=== PATIENT | female | born 1975 | race American Indian/Alaskan Native ===

== ENCOUNTER 2020-04-08 22:35 | Inpatient (IN) | payer OTHER ==
[2020-04-08] MEDS ORDERED: niCARdipine DRIP 40 MG/200 ML BAG IV ONE (23:07)
--- NOTE | 2020-04-08 23:12 | Cat Scan Report ---
CT head/brain wo con INDICATION: neuro deficits <6hrs or sx present upon awakening. TECHNIQUE: Routine CT head without contrast. All CT scans at this location are performed using CT dos e reduction for ALARA by means of automated exposure control. COMPARISON: None. FINDINGS: BRAIN / INTRACRANIAL CONTENTS: No acute hemorrhage, mass effect, midline shift, or hydrocephalus. No appreciable acute large territorial or lacunar infarct. No chronic infarct or focal atrophy. Normal b rain volume and ventricular/sulcal size for age. ORBITS: No significant abnormality of visualized orbits. SINUSES / MASTOIDS: No significant abnormality of visualized sinuses and mastoid air cells. ADDITIONAL FINDINGS: None. IMPRESSION: 1. No acute intracranial abnormality. CODE STROKE: Time of Communication (SOUND RECORDIST/CDT): 10:06 PM Licensed Practitioner Receiving Report: [place] Signer Name: Cas Evans MD Signed: 04/08/2020 11:07 PM Workstation Name: [id number]
[2020-04-08 23:45] LABS: BUN/Creatinine Ratio 16; Blood Urea Nitrogen 14 mg/dL (7-17); Hemolysis Index 6
[2020-04-08 23:56] LABS: Basophils % (Auto) 0.5 % (0.0-1.8); Eosinophils % (Auto) 0.1 % (0.0-4.3); Hematocrit 42.1 % (30.3-42.9); Hemoglobin 14.3 gm/dl (10.1-14.3); Lymphocytes # (Auto) 1.4 K/mm3 (1.2-5.4); Lymphocytes % (Auto) 20.6 % (13.4-35.0); Mean Corpuscular HGB Conc 34 % (30-34); Mean Corpuscular Volume 74 fl (79-97); Monocytes # (Auto) 0.3 K/mm3 (0.0-0.8); Platelet Count 206 K/mm3 (140-440); Red Blood Count 5.72 M/mm3 (3.65-5.03); Red Cell Distribution Width 17.8 % (13.2-15.2)
[2020-04-09 00:05] LABS: INR 1.04 (0.87-1.13)
[2020-04-09 00:06] LABS: Partial Thromboplastin Time 28.7 Sec. (24.2-36.6)
--- NOTE | 2020-04-09 00:13 | Cat Scan Report ---
CTA NECK WITH CONTRAST 04/08/2020 INDICATION / CLINICAL INFORMATION: stroke sx. COMPARISON: None. TECHNIQUE: Routine CTA of the neck is performed. 3-D/MIP reformats were postprocessed. Percentage st enosis is determined by direct quantitative measurements of diseased internal carotid artery diameter compared with normal distal internal carotid artery reference segments or by criteria similar to THANH CET where applicable. All CT scans at this location are performed using CT dose reduction for ALARA b y means of automated exposure control. CONTRAST: 100 ml of Isovue 370 FINDINGS: Carotid bifurcations: No evidence of carotid bifurcation stenosis. Carotid arteries: No significant abnormality. Cervical vertebral arteries: No significant abnormality. Aortic arch: No significant abnormality. None. IMPRESSION: No significant abnormality. Signer Name: Vic Aldana MD Signed: 04/09/2020 12:08 AM Workstation Name: [id number]
--- NOTE | 2020-04-09 00:15 | Cat Scan Report ---
CT ANGIOGRAM 04/08/2020 HISTORY: Stroke FINDINGS: Contrast-enhanced CT angiographic images of the intracranial circulation were obtained. In addition to the axial images, sagittal and coronal reformatted images were obtained. In addition, 3 p faye MIP reconstructions were produced. There is normal vascular contours associated with arterial vessels at the level of skull base and cir ayna of [place]. There is no evidence of vessel occlusion or significant stenosis. There is no evidence of vascular anomaly or aneurysm. IMPRESSION: No significant abnormality.. All CT scans at this location are performed using dose reduction to ALARA by means of automated expos ure control. Signer Name: Vic Aldana MD Signed: 04/09/2020 12:11 AM Workstation Name: [id number]
--- NOTE | 2020-04-09 00:32 | Emergency Department Report ---
ED General Adult HPI - General Chief complaint: Neuro Symptoms/Deficit Stated complaint: HIGH BLOOD PRESSURE Time Seen by Provider: 04/08/20 22:47 Source: patient Mode of arrival: Ambulatory Limitations: No Limitations - History of Present Illness Initial comments: Patient presents to the emergency department the chief complaint of right arm weakness and left facial droop. Patient states she woke up this morning at approximately 11 AM and noticed that she cannot move her right arm. Patient also states when she tried to smile the left side of her face was drooping. Patient has a history of hypertension and uses holistic treatments for her hypertension. On arrival to the emergency department patient's blood pressure was 254/147. Patient denies chest pain, shortness breath, or headache. -: Sudden Location: upper extremity Severity scale (0 -10): 0 Consistency: constant Improves with: none Worsens with: none Associated Symptoms: denies other symptoms Treatments Prior to Arrival: none - Related Data Allergies Allergy/AdvReac Type Severity Reaction Status Date / Time No Known Allergies Allergy Unverified 04/08/20 22:37 ED Review of Systems ROS: Stated complaint: HIGH BLOOD PRESSURE Other details as noted in HPI Comment: All other systems reviewed and negative Constitutional: denies: chills, fever Eyes: denies: eye pain, eye discharge, vision change ENT: denies: ear pain, throat pain Respiratory: denies: cough, shortness of breath, wheezing Cardiovascular: denies: chest pain, palpitations Endocrine: no symptoms reported Gastrointestinal: denies: abdominal pain, nausea, diarrhea Genitourinary: denies: urgency, dysuria, discharge Musculoskeletal: denies: back pain, joint swelling, arthralgia Skin: denies: rash, lesions Neurological: denies: headache, weakness, paresthesias Psychiatric: denies: anxiety, depression Hematological/Lymphatic: denies: easy bleeding, easy bruising ED Past Medical Hx - Past Medical History Hx Hypertension: Yes - Surgical History Past Surgical History?: No - Social History Smoking Status: Never Smoker Substance Use Type: Alcohol ED Physical Exam - General Limitations: No Limitations General appearance: alert, in no apparent distress - Head Head exam: Present: atraumatic, normocephalic - Eye Eye exam: Present: normal appearance - ENT ENT exam: Present: mucous membranes moist - Neck Neck exam: Present: normal inspection - Respiratory Respiratory exam: Present: normal lung sounds bilaterally. Absent: respiratory distress - Cardiovascular Cardiovascular Exam: Present: regular rate, normal rhythm. Absent: systolic murmur, diastolic murmur, rubs, gallop - GI/Abdominal GI/Abdominal exam: Present: soft, normal bowel sounds - Extremities Exam Extremities exam: Present: other (Patient has 2 out of 5 strength of the right upper extremity) - Back Exam Back exam: Present: normal inspection - Neurological Exam Neurological exam: Present: alert, oriented X3, CN II-XII intact. Absent: motor sensory deficit - Psychiatric Psychiatric exam: Present: normal affect, normal mood - Skin Skin exam: Present: warm, dry, intact, normal color. Absent: rash ED Course Vital Signs 04/08/20 04/08/20 04/09/20 22:43 23:08 00:18 Pulse Rate 84 92 H Respiratory 20 19 20 Rate Blood Pressure 254/147 218/130 [Right] O2 Sat by Pulse 98 98 98 Oximetry ED Medical Decision Making - Lab Data Result diagrams: 04/08/20 23:09 04/08/20 23:09 Lab Results 04/08/20 04/08/20 04/08/20 Range/Units 23:09 23:09 23:09 WBC 6.7 (4.5-11.0) K/mm3 RBC 5.72 H (3.65-5.03) M/mm3 Hgb 14.3 (10.1-14.3) gm/dl Hct 42.1 (30.3-42.9) % MCV 74 L (79-97) fl MCH 25 L (28-32) pg MCHC 34 (30-34) % RDW 17.8 H (13.2-15.2) % Plt Count 206 (140-440) K/mm3 Lymph % (Auto) 20.6 (13.4-35.0) % [place] % (Auto) 5.0 (0.0-7.3) % Eos % (Auto) 0.1 (0.0-4.3) % Baso % (Auto) 0.5 (0.0-1.8) % Lymph # (Auto) 1.4 (1.2-5.4) K/mm3 [place] # (Auto) 0.3 (0.0-0.8) K/mm3 Eos # (Auto) 0.0 (0.0-0.4) K/mm3 Baso # (Auto) 0.0 (0.0-0.1) K/mm3 Seg Neutrophils % 73.8 H (40.0-70.0) % Seg Neutrophils # 5.0 (1.8-7.7) K/mm3 PT 13.7 (12.2-14.9) Sec. INR 1.04 (0.87-1.13) APTT 28.7 (24.2-36.6) Sec. Thrombin Time (15.1-19.6) Sec. Sodium 139 (137-145) mmol/L Potassium 3.3 L (3.6-5.0) mmol/L Chloride 101.3 (98-107) mmol/L Carbon Dioxide 22 (22-30) mmol/L Anion Gap 19 mmol/L BUN 14 (7-17) mg/dL Creatinine 0.9 (0.6-1.2) mg/dL Estimated GFR > 60 ml/min BUN/Creatinine Ratio 16 % Glucose 145 H (65-100) mg/dL Calcium 10.0 (8.4-10.2) mg/dL Troponin T < 0.010 (0.00-0.029) ng/mL 04/08/20 Range/Units 23:09 WBC (4.5-11.0) K/mm3 RBC (3.65-5.03) M/mm3 Hgb (10.1-14.3) gm/dl Hct (30.3-42.9) % MCV (79-97) fl MCH (28-32) pg MCHC (30-34) % RDW (13.2-15.2) % Plt Count (140-440) K/mm3 Lymph % (Auto) (13.4-35.0) % [place] % (Auto) (0.0-7.3) % Eos % (Auto) (0.0-4.3) % Baso % (Auto) (0.0-1.8) % Lymph # (Auto) (1.2-5.4) K/mm3 [place] # (Auto) (0.0-0.8) K/mm3 Eos # (Auto) (0.0-0.4) K/mm3 Baso # (Auto) (0.0-0.1) K/mm3 Seg Neutrophils % (40.0-70.0) % Seg Neutrophils # (1.8-7.7) K/mm3 PT (12.2-14.9) Sec. INR (0.87-1.13) APTT (24.2-36.6) Sec. Thrombin Time 15.9 (15.1-19.6) Sec. Sodium (137-145) mmol/L Potassium (3.6-5.0) mmol/L Chloride (98-107) mmol/L Carbon Dioxide (22-30) mmol/L Anion Gap mmol/L BUN (7-17) mg/dL Creatinine (0.6-1.2) mg/dL Estimated GFR ml/min BUN/Creatinine Ratio % Glucose (65-100) mg/dL Calcium (8.4-10.2) mg/dL Troponin T (0.00-0.029) ng/mL - EKG Data -: EKG Interpreted by Me EKG shows normal: sinus rhythm Rate: normal - Radiology Data Radiology results: report reviewed - Medical Decision Making Tele-neurology consulted on patient TPA not indicated due to timeframe Timmy brock initiated Critical Care Time: Yes Critical care time in (mins) excluding proc time.: 35 Critical care attestation.: If time is entered above; I have spent that time in minutes in the direct care of this critically ill patient, excluding procedure time. ED Disposition Clinical Impression: Hypertensive emergency Disposition: DC-01 TO HOME OR SELFCARE Is pt being admited?: Yes Does the pt Need Aspirin: Yes Condition: Fair Instructions: Hypertension (ED) Referrals: PRIMARY CARE, [Primary Care Provider] - 3-5 Days
[2020-04-09] MEDS ORDERED: ASPIRIN 81 MG TAB CHEW PO ONE (00:53)
--- NOTE | 2020-04-09 01:08 | Emergency Department Report ---
ED Neuro Deficit HPI - General Chief Complaint: Neuro Symptoms/Deficit Stated Complaint: HIGH BLOOD PRESSURE Time Seen by Provider: 04/08/20 22:47 Source: patient Mode of arrival: Ambulatory Limitations: No Limitations - History of Present Illness Initial Comments: [facility] Date of Service: 04/08/2020 22:41:43 Impression: Rule Out Acute Ischemic Stroke Comments/Sign-Out: The patient has right arm and leg weakness. Possible hypertnsive stroke. Consider left bg stroke. No alteplase given outside of window. small vessel disease, would <BP below 220/110 Metrics: Last Known Well: 04/08/2020 11:00:00 [facility] Notification Time: 04/08/2020 22:41:07 Arrival Time: 04/08/2020 22:20:43 Stamp Time: 04/08/2020 22:41:43 Time First Login Attempt: 04/08/2020 22:44:52 Video Start Time: 04/08/2020 22:44:52 Symptoms: came through triage, high blood pressure. NIHSS Start Assessment Time: 04/08/2020 22:53:46 Patient is not a candidate for Alteplase/Activase. Patient was not deemed candidate for Alteplase/Activase thrombolytics because of Last Well Known Above 4.5 Hours. Video End Time: 04/08/2020 22:48:16 CT head showed no acute hemorrhage or acute core infarct. Clinical Presentation is Suggestive of Large Vessel Occlusive Disease, Recommendations are as Follows Reviewed, No Indication of Large Vessel Occlusive Thrombus, Patient is not an ARACELI Candidate. ED Physician notified of diagnostic impression and management plan on 04/08/2020 22:59:16 Our recommendations are outlined below. Recommendations: Activate Stroke Protocol Admission/Order Set Stroke/Telemetry Floor Neuro Checks Bedside Swallow Eval DVT Prophylaxis IV Fluids, Normal Saline Head of Bed 30 Degrees Euglycemia and Avoid Hyperthermia (PRN Acetaminophen) Antiplatelet Therapy Recommended Sign Out: Discussed with Emergency Department Provider History of Present Illness: Patient is a 44 year old Female. Patient was last normal, came in for high blood pressure. BP was 197/118, and reason for visit was high blood pressure. Examination: BP(218/130), Pulse(92), Blood Glucose(see note- 145) 1A: Level of Consciousness - Alert; keenly responsive + 0 1B: Ask Month and Age - Both Questions Right + 0 1C: Blink Eyes & Squeeze Hands - Performs Both Tasks + 0 2: Test Horizontal Extraocular Movements - Normal + 0 3: Test Visual [place]in - No Visual Loss + 0 4: Test Facial Palsy (Use Grimace if Obtunded) - Normal symmetry + 0 5A: Test Left Arm Motor Drift - No Drift for 10 Seconds + 0 5B: Test Right Arm Motor Drift - No Effort Against [place] + 3 6A: Test Left Leg Motor Drift - No Drift for 5 Seconds + 0 6B: Test Right Leg Motor Drift - No Effort Against [place] + 3 7: Test Limb Ataxia (FNF/Heel-Gomez) - No Ataxia + 0 8: Test Sensation - Normal; No sensory loss + 0 9: Test Language/Aphasia - Normal; No aphasia + 0 10: Test Dysarthria - Normal + 0 11: Test Extinction/Inattention - No abnormality + 0 NIHSS Score: 6 Patient/Family was informed the Neurology Consult would happen via TeleHealth consult by way of interactive audio and video telecommunications and consented to receiving care in this manner. Due to the immediate potential for life-threatening deterioration due to underlying acute neurologic illness, I spent 35 minutes providing critical care. This time includes time for face to face visit via telemedicine, review of medic al records, imaging studies and discussion of findings with providers, the patient and/or family. Dr Kentrell Romano [facility] Case [id number] - Related Data Allergies/Adverse Reactions: Allergies Allergy/AdvReac Type Severity Reaction Status Date / Time No Known Allergies Allergy Unverified 04/08/20 22:37 ED Review of Systems ROS: Stated complaint: HIGH BLOOD PRESSURE Other details as noted in HPI Constitutional: denies: chills, fever Eyes: denies: eye pain, eye discharge, vision change ENT: denies: ear pain, throat pain Respiratory: denies: cough, shortness of breath, wheezing Cardiovascular: denies: chest pain, palpitations Endocrine: no symptoms reported Gastrointestinal: denies: abdominal pain, nausea, diarrhea Genitourinary: denies: urgency, dysuria, discharge Musculoskeletal: denies: back pain, joint swelling, arthralgia Skin: denies: rash, lesions Neurological: denies: headache, weakness, paresthesias Psychiatric: denies: anxiety, depression Hematological/Lymphatic: denies: easy bleeding, easy bruising ED Past Medical Hx - Past Medical History Hx Hypertension: Yes - Surgical History Past Surgical History?: No - Social History Smoking Status: Never Smoker Substance Use Type: Alcohol ED Neuro Physical Exam - General Limitations: No Limitations General appearance: alert, in no apparent distress Suspected Stroke: Yes (see note) - NIHSS Assessment Interval: Baseline (see note) 1a. Level of Consciousness: alert/keenly responsive 1b. LOC Questions: answers both correctly 1c. LOC Commands: performs tasks correctly 2. Best Gaze: normal 3. Visual: no visual loss 4. Facial Palsy: normal symmetrical movement 5b. Motor Arm Right: no movement 5a. Motor Arm Left: no drift 6a. Motor Leg Left: no drift 6b. Motor Leg Right: no movement 7. Limb Ataxia: absent 8. Sensory: normal 9. Best Language: no aphasia 10. Dysarthria: normal 11. Extinction/Inattention: no abnormality Total Score: 8 Stroke Severity: Moderate Stroke - Psychiatric Psychiatric exam: Present: normal affect ED Course Vital Signs 04/08/20 04/08/20 04/09/20 22:43 23:08 00:18 Pulse Rate 84 92 H Respiratory 20 19 20 Rate Blood Pressure 254/147 218/130 [Right] O2 Sat by Pulse 98 98 98 Oximetry - Lab Data Result diagrams: 04/08/20 23:09 04/08/20 23:09 Lab Results 04/08/20 04/08/20 04/08/20 Range/Units 23:09 23:09 23:09 WBC 6.7 (4.5-11.0) K/mm3 RBC 5.72 H (3.65-5.03) M/mm3 Hgb 14.3 (10.1-14.3) gm/dl Hct 42.1 (30.3-42.9) % MCV 74 L (79-97) fl MCH 25 L (28-32) pg MCHC 34 (30-34) % RDW 17.8 H (13.2-15.2) % Plt Count 206 (140-440) K/mm3 Lymph % (Auto) 20.6 (13.4-35.0) % [place] % (Auto) 5.0 (0.0-7.3) % Eos % (Auto) 0.1 (0.0-4.3) % Baso % (Auto) 0.5 (0.0-1.8) % Lymph # (Auto) 1.4 (1.2-5.4) K/mm3 [place] # (Auto) 0.3 (0.0-0.8) K/mm3 Eos # (Auto) 0.0 (0.0-0.4) K/mm3 Baso # (Auto) 0.0 (0.0-0.1) K/mm3 Seg Neutrophils % 73.8 H (40.0-70.0) % Seg Neutrophils # 5.0 (1.8-7.7) K/mm3 PT 13.7 (12.2-14.9) Sec. INR 1.04 (0.87-1.13) APTT 28.7 (24.2-36.6) Sec. Thrombin Time (15.1-19.6) Sec. Sodium 139 (137-145) mmol/L Potassium 3.3 L (3.6-5.0) mmol/L Chloride 101.3 (98-107) mmol/L Carbon Dioxide 22 (22-30) mmol/L Anion Gap 19 mmol/L BUN 14 (7-17) mg/dL Creatinine 0.9 (0.6-1.2) mg/dL Estimated GFR > 60 ml/min BUN/Creatinine Ratio 16 % Glucose 145 H (65-100) mg/dL Calcium 10.0 (8.4-10.2) mg/dL Troponin T < 0.010 (0.00-0.029) ng/mL 04/08/20 Range/Units 23:09 WBC (4.5-11.0) K/mm3 RBC (3.65-5.03) M/mm3 Hgb (10.1-14.3) gm/dl Hct (30.3-42.9) % MCV (79-97) fl MCH (28-32) pg MCHC (30-34) % RDW (13.2-15.2) % Plt Count (140-440) K/mm3 Lymph % (Auto) (13.4-35.0) % [place] % (Auto) (0.0-7.3) % Eos % (Auto) (0.0-4.3) % Baso % (Auto) (0.0-1.8) % Lymph # (Auto) (1.2-5.4) K/mm3 [place] # (Auto) (0.0-0.8) K/mm3 Eos # (Auto) (0.0-0.4) K/mm3 Baso # (Auto) (0.0-0.1) K/mm3 Seg Neutrophils % (40.0-70.0) % Seg Neutrophils # (1.8-7.7) K/mm3 PT (12.2-14.9) Sec. INR (0.87-1.13) APTT (24.2-36.6) Sec. Thrombin Time 15.9 (15.1-19.6) Sec. Sodium (137-145) mmol/L Potassium (3.6-5.0) mmol/L Chloride (98-107) mmol/L Carbon Dioxide (22-30) mmol/L Anion Gap mmol/L BUN (7-17) mg/dL Creatinine (0.6-1.2) mg/dL Estimated GFR ml/min BUN/Creatinine Ratio % Glucose (65-100) mg/dL Calcium (8.4-10.2) mg/dL Troponin T (0.00-0.029) ng/mL Critical care attestation.: If time is entered above; I have spent that time in minutes in the direct care of this critically ill patient, excluding procedure time. ED Disposition Clinical Impression: Stroke Qualifiers: CVA mechanism: other Qualified Code(s): I63.89 - Other cerebral infarction Disposition: DC09 OP ADMIT IP TO THIS HOSP Is pt being admited?: Yes Does the pt Need Aspirin: Yes Condition: Fair Instructions: Hypertension (ED) Referrals: PRIMARY CARE, [Primary Care Provider] - 3-5 Days
--- NOTE | 2020-04-09 01:10 | Emergency Department Report ---
ED General Adult HPI - General Chief complaint: Neuro Symptoms/Deficit Stated complaint: HIGH BLOOD PRESSURE Time Seen by Provider: 04/08/20 22:47 - History of Present Illness Initial comments: This note is exclusively for the NIH scale please see the other note for further detail. - Related Data Allergies Allergy/AdvReac Type Severity Reaction Status Date / Time No Known Allergies Allergy Unverified 04/08/20 22:37 ED Review of Systems ROS: Stated complaint: HIGH BLOOD PRESSURE Other details as noted in HPI ED Past Medical Hx - Past Medical History Hx Hypertension: Yes - Surgical History Past Surgical History?: No - Social History Smoking Status: Never Smoker Substance Use Type: Alcohol ED Course Vital Signs 04/08/20 04/08/20 04/08/20 22:43 23:08 23:16 Pulse Rate 84 83 Respiratory 20 19 22 Rate Blood Pressure 254/147 Blood Pressure 254/147 [Right] O2 Sat by Pulse 98 98 98 Oximetry 04/09/20 04/09/20 04/09/20 00:16 00:18 00:30 Pulse Rate 93 H 92 H 101 H Respiratory 28 H 20 20 Rate Blood Pressure 254/147 218/130 Blood Pressure 218/130 [Right] O2 Sat by Pulse 98 98 97 Oximetry 04/09/20 04/09/20 00:45 01:00 Pulse Rate 104 H 102 H Respiratory 25 H 20 Rate Blood Pressure 254/147 194/108 Blood Pressure [Right] O2 Sat by Pulse 97 95 Oximetry ED Medical Decision Making - Lab Data Result diagrams: 04/08/20 23:09 04/08/20 23:09 Critical care attestation.: If time is entered above; I have spent that time in minutes in the direct care of this critically ill patient, excluding procedure time. ED Disposition Clinical Impression: Upper extremity weakness, Hypertensive emergency Disposition: DC-09 OP ADMIT IP TO THIS HOSP Is pt being admited?: Yes Condition: Fair Instructions: Hypertension (ED) Referrals: PRIMARY CARE, [Primary Care Provider] - 3-5 Days - Assessment Assessment Interval: Baseline - Level of Consciousness 1a. Level of Consciousness: alert/keenly responsive - LOC Questions 1b. LOC Questions: answers no questions correctly - LOC Command 1c. LOC Commands: performs tasks correctly - Best Gaze 2. Best Gaze: normal - Visual 3. Visual: no visual loss - Facial Palsy 4. Facial Palsy: normal symmetrical movement - Motor Arm 5a. Motor Arm Left: no drift 5b. Motor Arm Right: some gravity effort - Motor Leg 6a. Motor Leg Left: no drift 6b. Motor Leg Right: no drift - Limb Ataxia 7. Limb Ataxia: absent - Sensory 8. Sensory: normal - Best Language 9. Best Language: no aphasia - Dysarthria 10. Dysarthria: normal - Extinction and Inattention 11. Extinction/Inattention: no abnormality - Scoring Total Score: 4 Stroke Severity: Minor Stroke
[2020-04-09] MEDS ORDERED: METOCLOPRAMIDE 10 MG TAB PO PRN (03:08)
[2020-04-09] MEDS ORDERED: MAGNESIUM HYDROXIDE (MOM) ORAL LIQD UDC PO PRN ×2 (03:08)
[2020-04-09] MEDS ORDERED: MORPHINE 2 MG/1 ML INJ IV PRN ×2 (03:08)
[2020-04-09] MEDS ORDERED: ACETAMINOPHEN 325 MG TAB PO PRN (03:08)
[2020-04-09] MEDS ORDERED: PROMETHAZINE 25 MG RECT SUPP PR PRN (03:08)
[2020-04-09] MEDS ORDERED: ONDANSETRON 4 MG/2 ML INJ IV PRN ×2 (03:08)
--- NOTE | 2020-04-09 03:22 | History and Physical Report ---
History of Present Illness Date of examination: 04/09/20 Date of admission: 04/09/20 00:49 Chief complaint: Right sided weakness Left facial droop History of present illness: Patient is a 44-year-old female with known history of hypertension presented to the emergency room today with complaints of right-sided weakness and left-sided facial droop. She noticed that she was suddenly not able to raise her right upper extremity after waking up earlier this morning. She also had some numbness on her face. Patient uses holistic treatment for high blood pressure. Upon arrival in the emergency room blood pressure was 254/147. She was subsequently started on Cardene drip. She was evaluated by the teleneurologist and found not to be a TPA candidate. CT scan of the head and CT angiogram of the head and neck were unremarkable. Patient being admitted for evaluation of CVA. Past History Past Medical History: hypertension Past Surgical History: No surgical history Social history: no significant social history Family history: no significant family history Medications and Allergies Allergies Allergy/AdvReac Type Severity Reaction Status Date / Time No Known Allergies Allergy Verified 04/09/20 03:36 Active Meds: Active Medications Nicardipine/Sodium Chloride (Cardene Drip 40 Mg/200 Ml) 40 mg in 200 mls @ 25 mls/hr IV ONCE ONE; Protocol Stop: 04/09/20 07:06 Last Titration: 04/09/20 03:03 Dose: 2.75 mg/hr, 13.75 mls/hr Documented by: Review of Systems Constitutional: no fever, no chills Ears, nose, mouth and throat: no nasal congestion, no sore throat Cardiovascular: no chest pain, no palpitations Respiratory: no cough, no shortness of breath Gastrointestinal: no abdominal pain, no nausea, no vomiting, no diarrhea Genitourinary Female: no pelvic pain, no flank pain, no dysuria, no hematuria Musculoskeletal: no neck pain, no low back pain Integumentary: no rash, no pruritis Neurological: weakness (Right sided weakness), no headaches, no change in mentation Psychiatric: no anxiety, no depression Exam - Constitutional Vitals: Temp Pulse Resp BP Pulse Ox 91 H 22 192/105 95 04/09/20 03:01 04/09/20 03:01 04/09/20 03:01 04/09/20 03:01 General appearance: Present: no acute distress, well-nourished - EENT Eyes: Present: PERRL, EOM intact. Absent: scleral icterus ENT: hearing intact, clear oral mucosa, dentition normal - Neck Neck: Present: supple, normal ROM - Respiratory Respiratory effort: normal Respiratory: bilateral: CTA - Cardiovascular Rhythm: regular Heart Sounds: Present: S1 & S2. Absent: gallop, systolic murmur, diastolic murmur, rub - Extremities Extremities: no ischemia, pulses intact, pulses symmetrical, No edema, Full ROM Peripheral Pulses: within normal limits - Abdominal General gastrointestinal: Present: soft, non-tender, non-distended, normal bowel sounds. Absent: mass - Integumentary Integumentary: Present: clear, warm, dry - Musculoskeletal Musculoskeletal: right sided weakness - Psychiatric Psychiatric: appropriate mood/affect, intact judgment & insight, memory intact, cooperative - Neurologic Neurologic: CNII-XII intact, moves all extremities (Weakness on right upper and lower extremities.) HEART Score - HEART Score Troponin: Troponin T < 0.010 ng/mL (0.00-0.029) 04/08/20 23:09 Results - Labs CBC & Chem 7: 04/08/20 23:09 04/09/20 09:28 Labs: Abnormal lab results 04/08/20 04/08/20 Range/Units 23:09 23:09 RBC 5.72 H (3.65-5.03) M/mm3 MCV 74 L (79-97) fl MCH 25 L (28-32) pg RDW 17.8 H (13.2-15.2) % Seg Neutrophils % 73.8 H (40.0-70.0) % Potassium 3.3 L (3.6-5.0) mmol/L Glucose 145 H (65-100) mg/dL Assessment and Plan - Patient Problems (1) Upper extremity weakness Current Visit: Yes Status: Acute Plan to address problem: Possibly secondary to CVA. Patient started on daily aspirin and statin. We will schedule patient for carotid Doppler and MRI of the brain. We will request neurology evaluation and recommendation. Physical therapy and speech therapy evaluation. (2) Hypertensive emergency Current Visit: Yes Status: Acute Plan to address problem: Patient currently on Cardene drip. Will titrate according to protocol. Will monitor vital signs closely. (3) DVT prophylaxis Current Visit: Yes Status: Acute Plan to address problem: Patient placed on subcutaneous Lovenox. (4) Full code status Current Visit: Yes Status: Acute
[2020-04-09] MEDS ORDERED: carvediloL 3.125 MG TAB PO SCH (10:00)
[2020-04-09] MEDS ORDERED: amLODIPine 10 MG TAB PO SCH (10:00)
[2020-04-09] MEDS: ASPIRIN 325 MG TAB PO SCH (10:41)
[2020-04-09 10:53] LABS: BUN/Creatinine Ratio 19; Blood Urea Nitrogen 15 mg/dL (7-17); Calcium 9.5 mg/dL (8.4-10.2); Hemolysis Index 12
[2020-04-09] MEDS ORDERED: POTASSIUM CHLORIDE ER 20 MEQ TAB PO SCH (11:30)
[2020-04-09] MEDS ORDERED: carvediloL 3.125 MG TAB PO ONE (14:00)
--- NOTE | 2020-04-09 14:00 | Vascular Lab Report ---
Bilateral Carotid Doppler Ultrasound INDICATION : stroke TECHNIQUE: Grayscale and color Doppler imaging performed through the neck. COMPARISON: CT angiogram neck from 04/08/2020 FINDINGS: Right: There is no significant atherosclerotic disease. Peak systolic velocity in the CCA is 81 cm/ s. Peak systolic velocity in the proximal ICA is 109 cm/s with end-diastolic velocity of 29 cm/s. ICA to CCA ratio is less than 2. There is antegrade flow in the ECA and the vertebral artery. Left: There is no significant atherosclerotic disease. Peak systolic velocity in the CCA is 106 cm/s. Peak systolic velocity in the proximal ICA is 95 cm/s with end-diastolic velocity of 31 cm/s. ICA to CCA ratio is less than 2. There is antegrade flow in the ECA and the vertebral artery. IMPRESSION: No hemodynamically significant stenosis by NASCET criteria. Signer Name: Mitchell Blevins MD Signed: 04/09/2020 1:55 PM Workstation Name: [id number]
--- NOTE | 2020-04-09 14:53 | Magnetic Resonance Report ---
MRI BRAIN WITHOUT CONTRAST INDICATION / CLINICAL INFORMATION: stroke. TECHNIQUE: Multisequence, multiplanar images were obtained. COMPARISON: CT head dated 04/08/2020 FINDINGS: CEREBRAL and CEREBELLAR HEMISPHERES: A 2.5 x 1.4 cm area of diffusion restriction is identified in th e left posterior gangliocapsular region consistent with subacute ischemia. There is no evidence for h emorrhage or mass effect. No midline shift. Mild T2 signal abnormalities are noted in the subcortic al and periventricular white matter consistent with chronic microangiopathy. No chronic infarct is a ppreciated. No extra-axial fluid collection. VENTRICLES: Normal in size and configuration for age. VISUALIZED ORBITS: No significant abnormality. VISUALIZED PARANASAL SINUSES: No significant abnormality. ADDITIONAL FINDINGS: None. IMPRESSION: 2.5 x 1.4 cm subacute ischemic infarct in the left gangliocapsular region as described. Signer Name: Rob Prieto Jr, MD Signed: 04/09/2020 2:49 PM Workstation Name: [id number]
--- NOTE | 2020-04-09 16:37 | Event Note ---
Date: 04/09/20 Patient seen and examined Patient is a 44-year-old female with known history of hypertension presented to the emergency room with complaints of right-sided weakness and left-sided facial droop. Upon arrival in the emergency room blood pressure was 254/147. She was subsequently started on Cardene drip. She was evaluated by the teleneurologist and found not to be a TPA candidate. CT scan of the head and CT angiogram of the head and neck were unremarkable. Patient was admitted for evaluation of CVA. MRI pending, off cardene drip - start on [facility], [place]
--- NOTE | 2020-04-09 16:42 | Consultation ---
History of Present Illness Consult date: 04/09/20 Reason for Consult: right sided weakness History of present illness: Tele Neurology consult: Patient is a 44-year-old female with known history of hypertension presented to the emergency room today with complaints of right-sided weakness and right - sided facial droop. She noticed that she was suddenly not able to raise her right upper extremity after waking up earlier this morning. She also had some numbness on her face. Patient uses holistic treatment for high blood pressure. Upon arrival in the emergency room blood pressure was 254/147. She was subsequently started on Cardene drip. She was evaluated by the teleneurologist and found not to be a TPA candidate. CT scan of the head and CT angiogram of the head and neck were unremarkable. Patient being admitted for evaluation of CVA. Past History Past Medical History: hypertension Past Surgical History: No surgical history Social history: no significant social history Family history: no significant family history Medications and Allergies Allergies Allergy/AdvReac Type Severity Reaction Status Date / Time No Known Allergies Allergy Verified 04/09/20 03:36 Active Meds: Active Medications Nicardipine/Sodium Chloride (Cardene Drip 40 Mg/200 Ml) 40 mg in 200 mls @ 25 mls/hr IV ONCE ONE; Protocol Stop: 04/09/20 07:06 Last Titration: 04/09/20 03:03 Dose: 2.75 mg/hr, 13.75 mls/hr Documented by: Review of Systems Constitutional: no fever, no chills Ears, nose, mouth and throat: no nasal congestion, no sore throat Cardiovascular: no chest pain, no palpitations Respiratory: no cough, no shortness of breath Gastrointestinal: no abdominal pain, no nausea, no vomiting, no diarrhea Genitourinary Female: no pelvic pain, no flank pain, no dysuria, no hematuria Musculoskeletal: no neck pain, no low back pain Integumentary: no rash, no pruritis Neurological: weakness (Right sided weakness), no headaches, no change in mentation Psychiatric: no anxiety, no depression Past History Past Medical History: hypertension Past Surgical History: No surgical history Social history: no significant social history Family history: no significant family history Medications and Allergies Allergies Allergy/AdvReac Type Severity Reaction Status Date / Time No Known Allergies Allergy Verified 04/09/20 03:36 Active Meds: Active Medications Acetaminophen (Tylenol) 650 mg PO Q4H PRN PRN Reason: Pain MILD(1-3)/Fever >100.5/MCMILLAN Amlodipine Besylate (Amlodipine) 10 mg PO QDAY [facility] Aspirin (Aspirin) 325 mg PO QDAY [facility] Last Admin: 04/09/20 10:41 Dose: 325 mg Documented by: Atorvastatin Calcium (Lipitor) 40 mg PO QHS [facility] Bisacodyl (Dulcolax) 10 mg GA QDAY PRN PRN Reason: Constipation Carvedilol (Coreg) 3.125 mg PO BID [facility] Labetalol HCl (Labetalol) 10 mg IV Q4H PRN PRN Reason: Hypertension Magnesium Hydroxide (Milk Of Magnesia) 30 ml PO Q4H PRN PRN Reason: Constipation Metoclopramide HCl (Reglan) 10 mg PO Q6H PRN PRN Reason: Nausea And Vomiting Morphine Sulfate (Morphine) 2 mg IV Q4H PRN PRN Reason: Pain, Moderate (4-6) Ondansetron HCl (Zofran) 4 mg IV Q8H PRN PRN Reason: Nausea And Vomiting Promethazine HCl (Phenergan) 25 mg GA Q6H PRN PRN Reason: Nausea And Vomiting Sodium Chloride (Sodium Chloride Flush Syringe 10 Ml) 10 ml IV BID [facility] Last Admin: 04/09/20 10:41 Dose: 10 ml Documented by: Sodium Chloride (Sodium Chloride Flush Syringe 10 Ml) 10 ml IV PRN PRN PRN Reason: LINE FLUSH Physical Examination - Vital Signs Vital Signs: Vital Signs Resp Pulse Ox 20 98 04/08/20 22:43 04/08/20 22:43 - Physical Exam Narrative exam: Neurology examination: MS- alert awake. . language- nl. CN- eomi. right NLF slower movement and droop M- right ue- 0, right ue- lifts against the gravity. normal left ue and le. Laboratory Results - last 72 hr 04/08/20 04/08/20 04/08/20 23:09 23:09 23:09 WBC 6.7 RBC 5.72 H Hgb 14.3 Hct 42.1 MCV 74 L MCH 25 L MCHC 34 RDW 17.8 H Plt Count 206 Lymph % (Auto) 20.6 [place] % (Auto) 5.0 Eos % (Auto) 0.1 Baso % (Auto) 0.5 Lymph # (Auto) 1.4 [place] # (Auto) 0.3 Eos # (Auto) 0.0 Baso # (Auto) 0.0 Seg Neutrophils % 73.8 H Seg Neutrophils # 5.0 PT 13.7 INR 1.04 APTT 28.7 Thrombin Time Sodium 139 Potassium 3.3 L Chloride 101.3 Carbon Dioxide 22 Anion Gap 19 BUN 14 Creatinine 0.9 Estimated GFR > 60 BUN/Creatinine Ratio 16 Glucose 145 H Hemoglobin A1c Calcium 10.0 Troponin T < 0.010 04/08/20 04/09/20 04/09/20 23:09 09:28 14:36 WBC RBC Hgb Hct MCV MCH MCHC RDW Plt Count Lymph % (Auto) [place] % (Auto) Eos % (Auto) Baso % (Auto) Lymph # (Auto) [place] # (Auto) Eos # (Auto) Baso # (Auto) Seg Neutrophils % Seg Neutrophils # PT INR APTT Thrombin Time 15.9 Sodium 142 Potassium 3.3 L Chloride 103.9 Carbon Dioxide 24 Anion Gap 17 BUN 15 Creatinine 0.8 Estimated GFR > 60 BUN/Creatinine Ratio 19 Glucose 106 H Hemoglobin A1c 5.9 Calcium 9.5 Troponin T Results - Laboratory Findings CBC and BMP: 04/08/20 23:09 04/09/20 09:28 Abnormal Lab Findings: Abnormal Labs 04/08/20 04/08/20 04/09/20 23:09 23:09 09:28 RBC 5.72 H MCV 74 L MCH 25 L RDW 17.8 H Seg Neutrophils % 73.8 H Potassium 3.3 L 3.3 L Glucose 145 H 106 H Assessment and Plan Patient is a 44-year-old female with known history of hypertension presented to the emergency room today with complaints of right-sided weakness and right - sided facial droop. She noticed that she was suddenly not able to raise her right upper extremity after waking up earlier this morning. She also had some numbness on her face. Patient uses holistic treatment for high blood pressure. Upon arrival in the emergency room blood pressure was 254/147.. ---- she has right hemiparesis . --likely left sided cva, likely a subcortical stroke. --CTA head and neck- unremarkable. -- uncontrolled HTN. Plan- permissive HTN management. ASA 325 mg q day. increase lipitor 80 mg q hs. MRI brain w out. echo. speech therapy...pt/ot. thanks.
[2020-04-09] MEDS: amLODIPine 10 MG TAB PO SCH (19:06)
[2020-04-09] MEDS: carvediloL 3.125 MG TAB PO SCH (22:09)
[2020-04-10] MEDS ORDERED: POTASSIUM CHLORIDE ER 20 MEQ TAB PO ONE ×2 (01:04→05:00)
[2020-04-10] MEDS: ACETAMINOPHEN 325 MG TAB PO PRN (04:50)
[2020-04-10 05:09] LABS: Basophils % (Auto) 0.7 % (0.0-1.8); Eosinophils % (Auto) 0.5 % (0.0-4.3); Hematocrit 42.2 % (30.3-42.9); Hemoglobin 14.4 gm/dl (10.1-14.3); Mean Corpuscular HGB Conc 34 % (30-34); Mean Corpuscular Volume 73 fl (79-97); Monocytes # (Auto) 0.6 K/mm3 (0.0-0.8); Monocytes % (Auto) 7.7 % (0.0-7.3); Platelet Count 211 K/mm3 (140-440); Red Blood Count 5.78 M/mm3 (3.65-5.03); Red Cell Distribution Width 17.6 % (13.2-15.2)
[2020-04-10 05:17] LABS: INR 1.02 (0.87-1.13)
[2020-04-10 05:28] LABS: BUN/Creatinine Ratio 21; Blood Urea Nitrogen 19 mg/dL (7-17); Calcium 9.7 mg/dL (8.4-10.2); Chol/HDL Ratio 3.61 %; HDL Cholesterol 62 mg/dL (40-59); Hemolysis Index 5; LDL Cholesterol,Direct 156 mg/dL (50-130)
[2020-04-10] MEDS: ASPIRIN 325 MG TAB PO SCH (09:21)
[2020-04-10] MEDS: amLODIPine 10 MG TAB PO SCH (09:21)
[2020-04-10] MEDS: carvediloL 3.125 MG TAB PO SCH ×2 (09:22→21:40)
[2020-04-10] MEDS ORDERED: amLODIPine 10 MG TAB PO SCH (10:00)
[2020-04-10] MEDS: hydrALAZINE 100 MG TAB PO SCH ×3 (13:17→21:40)
--- NOTE | 2020-04-10 14:58 | Progress Note ---
Assessment and Plan Patient is a 44-year-old female with known history of hypertension presented to the emergency room today with complaints of right-sided weakness and right - sided facial droop. She noticed that she was suddenly not able to raise her right upper extremity after waking up earlier this morning. She also had some numbness on her face. Patient uses holistic treatment for high blood pressure. Upon arrival in the emergency room blood pressure was 254/147.. ---- she has right hemiparesis . --likely left sided cva, likely a subcortical stroke. --CTA head and neck- unremarkable. -- uncontrolled HTN. - MRI brain w out.--subacute left gangliocapsular ischemic stroke. - scho- nl Plan- normotensive now ASA 325 mg q day. lipitor 80 mg q hs. speech therapy...pt/ot., rehab. signing off. thanks. Subjective Date of service: 04/10/20 Interval history: still the same Objective - Exam Narrative Exam: Neurology examination: MS- alert awake. . language- nl. CN- eomi. right NLF slower movement and droop M- right ue- 0, right ue- lifts against the gravity. normal left ue and le. Laboratory Results - last 72 hr 04/08/20 04/08/20 04/08/20 23:09 23:09 23:09 WBC 6.7 RBC 5.72 H Hgb 14.3 Hct 42.1 MCV 74 L MCH 25 L MCHC 34 RDW 17.8 H Plt Count 206 Lymph % (Auto) 20.6 [place] % (Auto) 5.0 Eos % (Auto) 0.1 Baso % (Auto) 0.5 Lymph # (Auto) 1.4 [place] # (Auto) 0.3 Eos # (Auto) 0.0 Baso # (Auto) 0.0 Seg Neutrophils % 73.8 H Seg Neutrophils # 5.0 PT 13.7 INR 1.04 APTT 28.7 Thrombin Time Sodium 139 Potassium 3.3 L Chloride 101.3 Carbon Dioxide 22 Anion Gap 19 BUN 14 Creatinine 0.9 Estimated GFR > 60 BUN/Creatinine Ratio 16 Glucose 145 H Hemoglobin A1c Calcium 10.0 Troponin T < 0.010 04/08/20 04/09/20 04/09/20 23:09 09:28 14:36 WBC RBC Hgb Hct MCV MCH MCHC RDW Plt Count Lymph % (Auto) [place] % (Auto) Eos % (Auto) Baso % (Auto) Lymph # (Auto) [place] # (Auto) Eos # (Auto) Baso # (Auto) Seg Neutrophils % Seg Neutrophils # PT INR APTT Thrombin Time 15.9 Sodium 142 Potassium 3.3 L Chloride 103.9 Carbon Dioxide 24 Anion Gap 17 BUN 15 Creatinine 0.8 Estimated GFR > 60 BUN/Creatinine Ratio 19 Glucose 106 H Hemoglobin A1c 5.9 Calcium 9.5 Troponin T - Vital Sign Vital Signs - 12hr 04/10/20 04/10/20 04/10/20 04:18 04:50 07:40 Temperature 99.7 F H 98.6 F Pulse Rate 83 97 H 76 Respiratory 20 20 18 Rate Blood Pressure 193/112 193/112 186/111 O2 Sat by Pulse 94 89 Oximetry 04/10/20 04/10/20 08:17 11:46 Temperature 98.6 F Pulse Rate 67 78 Respiratory 18 Rate Blood Pressure 193/91 O2 Sat by Pulse 91 Oximetry - Laboratory Findings CBC and BMP: 04/10/20 04:45 04/10/20 04:45 Abnormal Lab Findings: Abnormal Labs 04/08/20 04/08/20 04/09/20 23:09 23:09 09:28 RBC 5.72 H Hgb MCV 74 L MCH 25 L RDW 17.8 H Lymph % (Auto) [place] % (Auto) Seg Neutrophils % 73.8 H Potassium 3.3 L 3.3 L BUN Glucose 145 H 106 H Cholesterol LDL Cholesterol Direct HDL Cholesterol 04/10/20 04/10/20 04:45 04:45 RBC 5.78 H Hgb 14.4 H MCV 73 L MCH 25 L RDW 17.6 H Lymph % (Auto) 42.0 H [place] % (Auto) 7.7 H Seg Neutrophils % Potassium BUN 19 H Glucose Cholesterol 224 H LDL Cholesterol Direct 156 H HDL Cholesterol 62 H
--- NOTE | 2020-04-10 15:10 | Progress Note ---
Assessment and Plan -- Subacute CVA Possibly secondary to CVA. Patient started on daily aspirin and statin. We will schedule patient for carotid Doppler and MRI of the brain. We will request neurology evaluation and recommendation. Physical therapy and speech therapy evaluation. (2) Hypertensive emergency Current Visit: Yes Status: Acute Plan to address problem: Patient currently on Cardene drip. Will titrate according to protocol. Will monitor vital signs closely. (3) DVT prophylaxis Current Visit: Yes Status: Acute Plan to address problem: Patient placed on subcutaneous Lovenox. (4) Full code status Current Visit: Yes Status: Acute Brief history; Patient is a 44-year-old female with known history of hypertension presented to the emergency room with complaints of right-sided weakness and left-sided facial droop. Upon arrival in the emergency room blood pressure was 254/147. She was subsequently started on Cardene drip. She was evaluated by the teleneurologist and found not to be a TPA candidate. CT scan of the head and CT angiogram of the head and neck were unremarkable. Patient was admitted for evaluation of CVA. MRI pending, off cardene drip - start on [place], [place] Subjective Date of service: 04/10/20 Objective - Constitutional Vitals: Vital Signs - 12hr 04/10/20 04/10/20 04/10/20 04:18 04:50 07:40 Temperature 99.7 F H 98.6 F Pulse Rate 83 97 H 76 Respiratory 20 20 18 Rate Blood Pressure 193/112 193/112 186/111 O2 Sat by Pulse 94 89 Oximetry 04/10/20 04/10/20 08:17 11:46 Temperature 98.6 F Pulse Rate 67 78 Respiratory 18 Rate Blood Pressure 193/91 O2 Sat by Pulse 91 Oximetry - Labs CBC & Chem 7: 04/10/20 04:45 04/10/20 04:45 Labs: Abnormal lab results 04/10/20 04/10/20 Range/Units 04:45 04:45 RBC 5.78 H (3.65-5.03) M/mm3 Hgb 14.4 H (10.1-14.3) gm/dl MCV 73 L (79-97) fl MCH 25 L (28-32) pg RDW 17.6 H (13.2-15.2) % Lymph % (Auto) 42.0 H (13.4-35.0) % [place] % (Auto) 7.7 H (0.0-7.3) % BUN 19 H (7-17) mg/dL Cholesterol 224 H (50-199) mg/dL LDL Cholesterol Direct 156 H (50-130) mg/dL HDL Cholesterol 62 H (40-59) mg/dL HEART Score - HEART Score Troponin: Troponin T < 0.010 ng/mL (0.00-0.029) 04/08/20 23:09
[2020-04-11] MEDS: hydrALAZINE 100 MG TAB PO SCH ×2 (08:14→14:02)
[2020-04-11] MEDS: ACETAMINOPHEN 325 MG TAB PO PRN (09:17)
[2020-04-11] MEDS: ASPIRIN 325 MG TAB PO SCH (09:17)
[2020-04-11] MEDS: amLODIPine 10 MG TAB PO SCH (09:17)
[2020-04-11] MEDS: carvediloL 3.125 MG TAB PO SCH (09:17)
[2020-04-11] MEDS ORDERED: carvediloL 6.25 MG TAB PO SCH (15:17)
--- NOTE | 2020-04-11 16:39 | Discharge Summary ---
Providers - Providers Date of Admission: 04/09/20 00:49 Date of discharge: 04/11/20 Attending physician: FUNMILAYO GONZALEZ 04/09/20 Consult to Physician [CONS] Routine Comment: Consulting Provider: CLARE OWENS Physician Instructions: Reason For Exam: CVA 04/09/20 03:09 Consult to Dietitian/Nutrition [CONS] Routine Physician Instructions: Reason For Exam: Reason for Consult: Nutrition Recommendations Reason for Consult: Diet education Occupational Therapy Evaluate and Treat [CONS] Routine Comment: Reason For Exam: Neuro deficits Physical Therapy Evaluation and Treat [CONS] Routine Comment: Reason For Exam: Neuro deficits 04/09/20 08:08 Speech Therapy Evaluation and Treat [CONS] Urgent Reason For Exam: swallow evaluation post stroke Primary care physician: COREMAKER Hospitalization Condition: Fair Disposition: [id number]/[place]-06 HOME [facility] Time spent for discharge: 34 minutes Core Measure Documentation - Palliative Care Palliative Care/ Comfort Measures: Not Applicable - Core Measures Any of the following diagnoses?: stroke - Stroke Discharge Requirements Statin for LDL = or >70 mg/dl on DC: Yes Anticoag for atrial fib/atrial flutter: Not Applicable Antithrombotic for ischemic stroke: Yes Exam - Constitutional Vitals: Temp Pulse Resp BP Pulse Ox 98.9 F 68 18 152/88 97 04/11/20 12:04 04/11/20 13:36 04/11/20 12:04 04/11/20 12:04 04/11/20 12:04 Plan Activity: advance as tolerated Weight Bearing Status: Weight Bear as Tolerated Diet: low fat, low salt Follow up with: PRIMARY CARE, [Primary Care Provider] - 3-5 Days Prescriptions: AtorvaSTATin [Lipitor] 80 mg PO QHS #30 tablet amLODIPine 10 mg PO QDAY #30 tablet hydrALAZINE [Apresoline TAB] 100 mg PO TID #90 tab carvediloL [Coreg] 6.25 mg PO BID #60 tablet Aspirin EC [Halfprin EC] 81 mg PO QDAY #30 tablet.
[2020-04-11 16:49] LABS: Bilirubin,Urine NEG (Negative); Blood,Urine NEG (Negative); Color,Urine Straw (Yellow); Protein,Urine <15 mg/dL mg/dL (Negative); RBC,Urine < 1.0 /HPF (0.0-6.0); Urobilinogen,Urine < 2.0 mg/dL (<2.0); WBC,Urine < 1.0 /HPF (0.0-6.0)
[2020-04-11 18:01] VITALS: BP 156/86
== END 2020-04-11 19:07 | disposition home health service (06) | DRG 65 ==
LOC: ED 22:35 → CC1 04-09 00:49 → 4A 04-09 14:21
PROVIDERS: ADMIT Internal Medicine Geriatric Medicine; ATTEND Internal Medicine
DX: I63.89 Other cerebral infarction (principal); I16.1 Hypertensive emergency; G81.91 Hemiplegia, unspecified affecting right dominant side; R29.810 Facial weakness; I10 Essential (primary) hypertension; Z79.82 Long term (current) use of aspirin; Z79.899 Other long term (current) drug therapy
CPT/HCPCS: 36415; 70450; 70496; 70498; 70551; 80048; 80061; 81001; 82962; 83036; 84484; 85025; 85610; 85670; 85730; 93005; 93306; 93880; 96365; G0378; A9270-GY; Q9967